=== PATIENT | female | born 1970 | race Hispanic/Latino ===

== ENCOUNTER → 2017-08-28 | Outpatient (CLI) | payer BC ==
[~2017-08-28] MED LIST: LISINOPRIL10 MG; VASOTEC10 M1
--- NOTE | 2017-09-05 18:12 | Diagnostic Imaging Report ---
#[id number] - MGSCRBIL #BILATERAL DIGITAL SCREENING MAMMOGRAM WITH CAD: 08/28/2017 CLINICAL: Routine screening. Comparison is made to exams dated: 08/16/2016 mammogram and 05/31/2013 mammogram - [facility]. Current study contains 4 films. The tissue of both breasts is heterogeneously dense. This may lower the sensitivity of mammography. Current study was also evaluated with a Computer Aided Detection (CAD) system. There are benign calcifications in the right breast. No significant masses, calcifications, or other findings are seen in either breast. There has been no significant interval change. IMPRESSION: BENIGN There is no mammographic evidence of malignancy. A 1 year screening mammogram is recommended. The patient will be notified by letter of the results. Javon simons/michael:09/04/2017 13:53:13 Image Processing Engineer: Fiona BUCK(R)(M), [facility] letter sent: Compared to Prior B9 Mammogram BI-RADS: 2 Benign
== END ==
LOC: MAMMO 08:24
PROVIDERS: ATTEND Obstetrics & Gynecology
DX: Z12.31 Encounter for screening mammogram for malignant neoplasm of breast (principal)
CPT/HCPCS: 77067

== ENCOUNTER → 2018-09-14 | Outpatient (CLI) | payer BC | LOC: MAMMO 14:22 | PROVIDERS: ATTEND Obstetrics & Gynecology | DX: Z12.31 Encounter for screening mammogram for malignant neoplasm of breast (principal) | CPT/HCPCS: 77067 ==

== ENCOUNTER → 2021-08-30 | Outpatient (CLI) | payer BC | LOC: MAMMO 16:01 | PROVIDERS: ATTEND Obstetrics & Gynecology | DX: Z12.31 Encounter for screening mammogram for malignant neoplasm of breast (principal) | CPT/HCPCS: 77067 ==

== ENCOUNTER → 2022-08-23 | Outpatient (CLI) | payer BC | LOC: MAMMO 13:46 | PROVIDERS: ATTEND Obstetrics & Gynecology | DX: Z12.31 Encounter for screening mammogram for malignant neoplasm of breast (principal) | CPT/HCPCS: 77067 ==

== ENCOUNTER 2025-01-04 09:50 | Emergency (ER) | payer BC ==
[~2025-01-04] VITALS: Ht 162.6 cm; Wt 77.6 kg
[2025-01-04] MEDS: FAMOTIDINE 20 MG/2 ML VIAL IV STA (10:45)
[2025-01-04] MEDS: ONDANSETRON HCL INJ 2MG/ML 2ML 2 MG/ML VIAL IV STA (10:45)
[2025-01-04] MEDS ORDERED: IOPAMIDOL 370 MG/ML 100 ML INFUS..BTL INJ ONE (10:53)
[2025-01-04 11:42] VITALS: PULSE 76; RESP 16; TEMP 98.5; O2SAT 98
[2025-01-04] MEDS ORDERED: ONDANSETRON ODT4 MG PO (11:49)
[2025-01-04] MEDS ORDERED: ENALAPRIL-HCTZ1 EACH PO (11:49)
== END 2025-01-04 11:58 | disposition home or self-care (01) ==
LOC: FSED 09:54
DX: R10.13 Epigastric pain (principal); R59.9 Enlarged lymph nodes, unspecified; N83.291 Other ovarian cyst, right side; R51.9 Headache, unspecified; R11.0 Nausea; K76.0 Fatty (change of) liver, not elsewhere classified; K21.9 Gastro-esophageal reflux disease without esophagitis; I10 Essential (primary) hypertension
CPT/HCPCS: 74177; 80053; 80307; 81003; 84484; 85025; 93005; 99283; J1308; J2405; Q9967

== ENCOUNTER → 2025-01-27 | Day surgery (SDC) | payer BC ==
[~2025-01-27] MED LIST changes: +ENALAPRIL-HCTZ1 EACH PO; +LIDOCAINE HCL 2% LOCAL INJ 5 ML SDV VIAL INJ ONE; +ONDANSETRON ODT4 MG PO; +PROPOFOL IV EMULSION 10 MG/ML 20 ML VIAL ONE
[2025-01-27 08:15] VITALS: TEMP 97.2
[2025-01-27 08:35] VITALS: BP 114/78; PULSE 76; RESP 18; O2SAT 100
[2025-01-27] MEDS: LACTATED RINGER'S 1,000 ML ONE (09:21)
== END | disposition home or self-care (01) ==
LOC: OR 06:09
PROVIDERS: ATTEND Internal Medicine Gastroenterology
DX: K29.50 Unspecified chronic gastritis without bleeding (principal); K21.9 Gastro-esophageal reflux disease without esophagitis; K44.9 Diaphragmatic hernia without obstruction or gangrene; K64.8 Other hemorrhoids; I10 Essential (primary) hypertension; E66.3 Overweight; Z68.29 Body mass index [BMI] 29.0-29.9, adult; Z86.0100 Personal history of colon polyps, unspecified; Z79.899 Other long term (current) drug therapy
CPT/HCPCS: 43239; 45378; 88305; J2003